=== PATIENT | male | born 1970 | race Caucasian/White ===

== ENCOUNTER 2022-02-17 18:09 | Emergency (ER) | payer OTHER, SELFPAY ==
[2022-02-17 18:24] VITALS: BP 144/103; PULSE 88; RESP 16; TEMP 36.6; O2SAT 98; BMI 26.5
--- NOTE | 2022-02-17 18:47 | CRLHL7_ITS ---
For Patients: As a result of the Cures Act, medical imaging exams and procedure reports are released immediately into your electronic medical record. You may view this report before your referring provider. If you have questions, please contact your health care provider. INDICATION: Left great toe injury. TECHNIQUE: Three views of the left great toe. COMPARISON: None. FINDINGS: Acute nondisplaced transverse fracture through the distal phalanx. Otherwise unremarkable. IMPRESSION: Acute nondisplaced distal phalangeal fracture. Dictated by Kodi Plascencia MD @ 02/17/2022 7:28:55 PM (Electronically Signed)
--- NOTE | 2022-02-17 18:47 | ED.LOWEXIN ---
HPI - Extremity Injury (Lower) General Chief Complaint: Extremity Pain/Injury, Lower Stated Complaint: Smashed L big toe under a loading ramp Time Seen by Provider: 02/17/22 18:18 History of Present Illness HPI Narrative: This 51-year-old male comes in with an injury to his left great toe. He states that it was caught under a loading ramp. This happened about 4 hours prior to arrival. He came inside to take a shower notice that there was significant bruising along with pain. There is no injury to the nail or subungual hematoma. Related Data Home Medications Medication Instructions Recorded Confirmed chlorthalidone 25 mg tablet mg 02/17/22 Allergies Allergy/AdvReac Type Severity Reaction Status Date / Time No Known Drug Allergies Allergy Verified 02/17/22 18:26 Review of Systems Status of ROS: Reports: 10 or more systems reviewed and unremarkable except as noted in History and below Narrative: Constitutional: No fevers, no weight gain or loss. Eyes: No discharge. No vision changes. HENT: No congestion, no sore throat, no ear pain. Cardiovascular: No chest pain, no palpitations. Respiratory: No shortness of breath, no wheezes, no cough. Gastrointestinal: No abdominal pain, no vomiting, no diarrhea. Genitourinary: No dysuria, no hematuria. Musculoskeletal: Left great toe injury. Skin: No rashes, no pruritis. Neurological: No dizziness, weakness, sensory change, speech change. Endo/Heme/Allergies: No bruising or bleeding. No polydipsia. Pysch: no suicidality, no anxiety, no insomnia. All other systems reviewed and are negative. Exam Narrative: Exam Narrative: Constitutional: Well-developed, well-nourished, no acute distress. HEENT: Normocephalic, atraumatic. Neck: Normal range of motion. Nontender. Supple. Heart: Intact distal pulses. Lungs: No chest discomfort. No wheezes, rhonchi, or rales. Abdomen: Nontender. Back: Normal range of motion. Extremities: Left great toe has bruising across the proximal portion on the dorsal aspect. There is no subungual hematoma or nail disruption. There is no laceration of the skin in this area. Skin: Intact. No rash. Warm. No erythema or pallor. Neurologic: No altered sensation. No weakness. Alert and oriented. Psychiatric: No suicidality. No anxiety or depression. No insomnia. Nursing notes and vitals signs are reviewed. Const: Vital Signs, click to edit/add: Vital Signs - 24 hr 02/17/22 18:24 Temperature 97.8 F Pulse Rate [Pulse Oximeter] 88 Respiratory Rate 16 Blood Pressure [Ri ght Upper Arm] 144/103 H Pulse Oximetry 98 Oxygen Delivery Me thod Room Air Course Vital Signs Vital signs: Initial Vital Signs Temperature 97.8 F 02/17/22 18:24 Temperature Source Temporal Artery Scan 02/17/22 18:24 Pulse Rate 88 02/17/22 18:24 Respiratory Rate 16 02/17/22 18:24 Blood Pressure 144/103 H 02/17/22 18:24 Blood Pressure Mean 116 02/17/22 18:24 Blood Pressure Position Supine 02/17/22 18:24 Pulse Oximetry 98 02/17/22 18:24 Oxygen Delivery Method 02/17/22 18:24 Vital Signs Temperature 97.8 F 02/17/22 18:24 Pulse Rate 88 02/17/22 18:24 Respiratory Rate 16 02/17/22 18:24 Blood Pressure 144/103 H 02/17/22 18:24 Pulse Oximetry 98 02/17/22 18:24 Oxygen Delivery Method 02/17/22 18:24 Temperature 97.8 F 02/17/22 18:24 Pulse Rate 88 02/17/22 18:24 Respiratory Rate 16 02/17/22 18:24 Blood Pressure 144/103 H 02/17/22 18:24 Pulse Oximetry 98 02/17/22 18:24 Oxygen Delivery Method 02/17/22 18:24 MDM - Extremity Injury (Lower) MDM Narrative Medical decision making narrative: This patient has a fracture of the distal portion of his left great toe. The alignment is quite good and no intervention is needed. He does have a walking shoe or boot that he can use. He did receive a prescription for Toradol also. Imaging Data XR L Great Toe: My impression: Tuft fracture of the distal portion of the left great toe with minimal displacement. Discharge Plan Discharge Clinical Impression: Fracture of toe Patient Disposition: Home, Self-Care Condition: Stable Additional Instructions: Take medication as needed and indicated. Follow up with MD or return if worsening. Prescriptions: No Action chlorthalidone 25 mg tablet Label Comments: TAKE 1 TABLET BY MOUTH EVERY DAY Follow Up/Referrals: Beto Worthington DO [Primary Care Provider] - Stand Alone Forms: MyHealth Info Instructions
--- OUTSIDE RECORDS SUMMARY | 2022-02-17 19:24 | XMS_ITS | Encounter Summary ---
:1970 Author Organization [facility] Address [address] [place] [address]. [place] [address] Care Team Providers Name Role Phone No Ref-Primary, Physician Primary Care Provider [phone] Reason for Referral Consultation (Routine: Next available opening) - Pending Review Specialty Diagnoses / Procedures Referred By Contact Refer red To Contact Diagnoses Chest pain, unspecified type Palpitations Premature beats Errol Musa MD [facility] [address] [place], [place] [address] Referral ID Status Reason Start Date Expiration Date Visits V isits Requested Authorized [id number] Pending 05/13/2021 05/13/2022 1 1 Review ALT PAVING MACHINE OPERATOR Reason for Visit Reason Comments Palpitations Encounter Details Date Type Department Care Team Description 05/13/2021 Emergency [facility] Sony Musa MD Chest pain, unspecified type; [facility] Emergency Dep t [facility] Palpitations; [address] [place] Premature beats [place], [place] [address] [phone] [address] [place] [address] (Wo rk) Social History Tobacco Use Types Packs/Day Years Used Date Smoking Tobacco: Never Assessed Sex Assigned at Date Recorded Not on file COVID-19 Exposure Response Date Recorded In the last month, have you been in contact with No / Unsure 05/13/2021 12:59 PM ASPHALT PAVING MACHINE OPERATOR someone who was confirmed or suspected to have Coronavirus / COVID-19? documented as of this encounter Last Filed Vital Signs Vital Sign Reading Time Taken Comments Blood Pressure 135/97 05/13/2021 6:45 PM ASPHALT PAVING MACHINE OPERATOR Pulse 73 05/13/2021 6:45 PM ASPHALT PAVING MACHINE OPERATOR Temperature 36.6 ??C (97.9 ??F) 05/13/2021 1:15 PM ASPHALT PAVING MACHINE OPERATOR Respiratory Rate 11 05/13/2021 6:45 PM ASPHALT PAVING MACHINE OPERATOR Oxygen Saturation 98% 05/13/2021 6:45 PM ASPHALT PAVING MACHINE OPERATOR Inhaled Oxygen Concentration - - Weight 86.2 kg (190 lb) 05/13/2021 1:15 PM ASPHALT PAVING MACHINE OPERATOR Height 180.3 cm (5' 11) 05/13/2021 1:15 PM ASPHALT PAVING MACHINE OPERATOR Body Mass Index 26.5 05/13/2021 1:15 PM ASPHALT PAVING MACHINE OPERATOR documented in this encounter Discharge Instructions Discharge InstructionsErrol Musa MD - 05/13/2021 6:38 PM CST Discharge Instructions Palpitations Palpitations are an unusual awareness of your heartbeat. People often describe this as the heart skipping, fluttering, racing, irregular, or pounding. At this time, your provider has found no signs that your palpitations are due to a serious or life-threatening condition. However, sometimes there is aserious problem that does not show up right away. Palpitations can be caused by caffeine, cigarettes, diet pills, energy drinks or supplements, other stimulants, and medications and street drugs. They can also be caused by anxiety, hormone conditions such as high thyroid, and other medical conditions. Sometimes they are a sign of abnormal rhythm in the heart. At this time, your provider did not find any dangerous cause of your symptoms. Generally, every Emergency Department visit should have a follow-up clinic visit with either a primary or a specialty clinic/provider. Please follow-up as instructed by your emergency provider today. Return to the Emergency Department if: You get chest pain or tightness. You are short of breath. You get very weak or tired. You pass out or faint. Your heart rate is over 120 beats per minute for more than 10 minutes while you are resting. You have anything else that worries you. What can I do to help myself? Fill any prescriptions the provider gave you and take them right away. Follow your provider???s instructions about the prescription medicines you are on. Sometimes the provider may tell you to stop taking a medicine or change the dose. If you smoke, this may be a good time to quit! The less you can smoke, the better. Do not use energy drinks, diet pills, or stimulants. Limit your use of caffeine. If you were given a prescription for medicine here today, be sure to read all of the information (including the package insert) that comes with your prescription. This will include important information about the medicine, its side effects, and any warnings that you need to know about. The pharmacist who fills the prescription can provide more information and answer questions you may have about the medicine. If you have questions or concerns that the pharmacist cannot address, please call or return to the Emergency Department. Remember that you can always come back to the Emergency Department if you are not able to see your regular provider in the amount of time listed above, if you get any new symptoms, or if there is anything that worries you. Discharge Instructions Chest Pain You have been seen today for chest pain or discomfort. At this time, your provider has found no signs that your chest pain is due to a serious or life- threatening condition, (or you have declined more testing and/or admission to the hospital). However, sometimes there is a serious problem that does not show up right away. Your evaluation today may not be complete and you may need further testing and evaluation. Generally, every Emergency Department visit should have a follow-up clinic visit with either a primary or a specialty clinic/provider. Please follow-up as instructed by your emergency provider today. Return to the Emergency Department if: Your chest pain changes, gets worse, starts to happen more often, or comes with less activity. You are newly short of breath. You get very weak or tired. You pass out or faint. You have any new symptoms, like fever, cough, numb legs, or you cough up blood. You have anything else that worries you. Until you follow-up with your regular provider, please do the following: If you have questions, contact your regular provider. Follow-up with your regular provider/clinic as directed; this is very important. If you were given a prescription for medicine here today, be sure to read all of the information (including the package insert) that comes with your prescription. This will include important information about the medicine, its side effects, and any warnings that you need to know about. The pharmacist who fills the prescription can provide more information and answer questions you may have about the medicine. If you have questions or concerns that the pharmacist cannot address, please call or return to the Emergency Department. Remember that you can always come back to the Emergency Department if you are not able to see your regular provider in the amount of time listed above, if you get any new symptoms, or if there is anything that worries you. 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 Pt now reports some chest tightness and feels like it is beating harder than it should. Pt states tightness is 2/10. Denies SOB, nausea or vomiting. Pt did feel lightheaded at time of palpitations. ABCs intact. A&OX4. ALT PAVING MACHINE OPERATOR Errol Musa MD - 05/13/2021 12:59 PM CST History Chief Complaint: Palpitations HPI Sohail Levi is a 50 year old male who presents with concern for irregular heartbeat, chest discomfort. Around 1230p, patient was working on his son's vehicle when he started appreciating irregular heartbeats and some mild lightheadedness. He also describes some associated chest tightness. Episode l asted about a minute and a half. Since then he has had intermittent episodes of palpitations. When asked if he has lingering chest pain, he described that he might have some mild sternal discomfort butnothing marked. No associated shortness of breath or cough or fever. No leg swelling. No history of blood clots or cancer or hemoptysis or hormone medications or recent long trips/surgeries. He has notseen a doctor in many years and does not know about other risk factors/comorbidities. Allergies: No Known Allergies Medications: multivitamin w/minerals (MULTI-VITAMIN) tablet None Past Medical History: No past medical history on file. There are no problems to display for this patient. no known Past Surgical History: No past surgical history on file. None reported Family History: family history is not on file. No known Social History: PCP: No primary care provider on file. Lives with Review of Systems A 10 point ROS was obtained and negative except as noted here and in HPI Physical Exam Patient Vitals for the past 24 hrs: BP Temp Temp src Pulse Resp SpO2 Height Weight 05/13/21 1845 (!) 135/97 -- -- 73 11 98 % -- -- 05/13/21 1830 (!) 134/90 -- -- 62 12 98 % -- -- 05/13/21 1815 133/89 -- -- 60 12 98 % -- -- 05/13/21 1800 (!) 139/94 -- -- 68 11 98 % -- -- 05/13/21 1745 (!) 145/102 -- -- 70 9 98 % -- -- 05/13/21 1740 -- -- -- 69 11 99 % -- -- 05/13/21 1735 -- -- -- 66 15 98 % -- -- 05/13/21 1730 (!) 150/103 -- -- 73 -- -- -- -- 05/13/21 1315 (!) 150/101 97.9 ??F (36.6 ??C) Temporal 90 18 99 % 1.803 m (5' 11) 86.2 kg (190 lb) Physical Exam VS: Reviewed per above HENT: normal speech EYES: sclera anicteric CV: Rate as noted, regular rhythm. RESP: Effort normal. Breath sounds are normal bilaterally. NEURO: Alert, moving all extremities MSK: No deformity of the extremities SKIN: Warm and dry Emergency Department Course ECG (13:19:28): Rate 80 bpm. QT/QTc 370/426. P-R-T axes 71, 68, 56. Interpretation: Normal sinus rhythm Agree with computer interpretation. Yes No significant change compared to EKG dated: no old. Interpreted at 1322 by Errol Musa MD. Laboratory: Labs Ordered and Resulted from Time of ED Arrival to Time of ED Departure BASIC METABOLIC PANEL - Abnormal Result Value Sodium 139 Potassium 3.9 Chloride 106 Carbon Dioxide (CO2) 28 Anion Gap 5 Urea Nitrogen 14 Creatinine 0.88 Calcium 9.3 Glucose 128 (*) GFR Estimate >90 TROPONIN I - Normal Troponin I High Sensitivity 6 TROPONIN I - Normal Troponin I High Sensitivity 5 CBC WITH PLATELETS AND DIFFERENTIAL WBC Count 9.6 RBC Count 5.04 Hemoglobin 14.7 Hematocrit 46.7 MCV 93 MCH 29.2 MCHC 31.5 RDW 13.1 Platelet Count 284 % Neutrophils 65 % Lymphocytes 26 % Monocytes 7 % Eosinophils 1 % Basophils 1 % Immature Granulocytes 0 NRBCs per 100 WBC 0 Absolute Neutrophils 6.1 Absolute Lymphocytes 2.5 Absolute Monocytes 0.7 Absolute Eosinophils 0.1 Absolute Basophils 0.1 Absolute Immature Granulocytes 0.0 Absolute NRBCs 0.0 Emergency Department Course: Past medical records, nursing notes, and vitals reviewed. I performed an exam of the patient and obtained history, as documented above. I rechecked the patient. Findings and plan explained to the Patient . Patient was discharged. Impression & Plan Medical Decision Making: Patient presents to the ER for evaluation of episode of palpitations, chest discomfort. On arrival vital signs are reassuring. Here in the ER he does not have significant ongoing palpitations or chest discomfort. EKG is sinus rhythm without ischemic change and serial troponin testing is negative. I have low suspicion for occult ACS. Patient does not have respiratory symptoms or hypoxemia or tachycardia to suggest occult PE. He also does not have other significant PE risk factors. Lungs are clear to auscultation without signs of pneumonia or pneumothorax or pulmonary edema. While at bedside, patientinformed me that he was having another palpitation, similar to what he was experiencing earlier thisafternoon. On the dump grounds checker, I did see a premature beat. It appeared to be a premature atrial contraction although PVC is also in the differential. We discussed that if his symptoms are gettingworse or not better, next step might be Holter monitor or Zio patch. Other basic labs are reassuring without concerning electrolyte derangement or acute kidney injury. Encouraged establishing primary care. Return precautions discussed prior to discharge. Diagnosis: ICD-10-CM 1. Chest pain, unspecified type R07.9 Primary Care Referral 2. Palpitations R00.2 Primary Care Referral 3. Premature beats I49.49 Primary Care Referral Discharge Medications: Discharge Medication List as of 05/13/2021 6:49 PM 05/13/2021 Errol Musa MD Lindenbaum, Elan, MD 05/13/212022 ALT PAVING MACHINE OPERATOR documented in this encounter Plan of Treatment Scheduled Referrals Name Type Priority Associated Diagnoses Order [facility] Primary Care Referral Routine: Next Chest pain, Expected: Referral available opening unspecified ty pe 05/13/2021 Palpitations (Approximate), Premature beats Expires: 05/13/2022 documented as of this encounter Procedures Procedure Name Priority Date/Time Associated Comments Diagnosis TROPONIN I STAT 05/13/2021 5:17 PM Results f or this ASPHALT PAVING MACHINE OPERATOR procedure are i n the results section. EXTRA TUBE STAT 05/13/2021 1:53 PM Results f or this ASPHALT PAVING MACHINE OPERATOR procedure are i n the results section. EXTRA GREEN TOP STAT 05/13/2021 1:53 PM Result s for this (LITHIUM HEPARIN) ASPHALT PAVING MACHINE OPERATOR procedure are in TUBE the results section. EXTRA RED TOP TUBE STAT 05/13/2021 1:53 PM Res ults for this ASPHALT PAVING MACHINE OPERATOR procedure are i n the results section. EXTRA BLUE TOP TUBE STAT 05/13/2021 1:53 PM Re sults for this ASPHALT PAVING MACHINE OPERATOR procedure are i n the results section. CBC WITH PLATELETS STAT 05/13/2021 1:53 PM Res ults for this AND DIFFERENTIAL ASPHALT PAVING MACHINE OPERATOR procedure a re in the results section. CBC WITH PLATELETS & STAT 05/13/2021 1:53 PM R esults for this DIFFERENTIAL ASPHALT PAVING MACHINE OPERATOR procedure are i n the results section. TROPONIN I STAT 05/13/2021 1:53 PM Results f or this ASPHALT PAVING MACHINE OPERATOR procedure are i n the results section. BASIC METABOLIC PANEL STAT 05/13/2021 1:53 PM Results for this ASPHALT PAVING MACHINE OPERATOR procedure are i n the results section. EKG 12-LEAD, TRACING STAT 05/13/2021 1:19 PM R esults for this ONLY ASPHALT PAVING MACHINE OPERATOR procedure are i n the results section. documented in this encounter Results Troponin I (now) (05/13/2021 5:17 PM ASPHALT PAVING MACHINE OPERATOR) P athologist Signature Troponin I High 5 <79 ng/L 05/13/2021 [facility] Sensitivity 6:35 PM ASPHALT PAVING MACHINE OPERATOR Comment: This Troponin-I result was obta ined using a Siemens Dimension Garnavillo High Sensitivity Troponin-I assay (TNIH). Eff ective 03/20/21, nine labs/sites in the [facility] switched from a Siemens Garnavillo Contemporary Troponin I assay (CTNI) to a Siemens Garnavillo High-Sensitivity Troponi n I assay (TNIH). Specimen Anatomical Collection Method / Collection Time Recei chey Time (Source) Location / Volume Laterality Blood BLOOD SPECIMEN / Venipuncture / 05/13/2021 5:17 2021 5:23 Unknown Unknown PM ASPHALT PAVING MACHINE OPERATOR PM ASPHALT PAVING MACHINE OPERATOR Errol Musa MD LAB - BLOOD ORDERABLES Performing Organization Address City/State/[place] [address] Care [address] Lab (1st floor, no room number) Extra Green Top ([place] Heparin) Tube (05/13/2021 1:53 PM ASPHALT PAVING MACHINE OPERATOR) P athologist Signature Hold Specimen [facility] 05/13/2021 [facility] 3:17 PM ASPHALT PAVING MACHINE OPERATOR Specimen Anatomical Collection Method / Collection Time Recei chey Time (Source) Location / Volume Laterality Blood VENOUS LINE / Venipuncture / 05/13/2021 1:53 2 2:13 Unknown Unknown PM ASPHALT PAVING MACHINE OPERATOR PM ASPHALT PAVING MACHINE OPERATOR Errol Musa MD LAB - BLOOD ORDERABLES Performing Organization Address City/[facility]/[place] [address] Care Lab [address] Lab (1st floor, no room number) Extra Red Top Tube (05/13/2021 1:53 PM ASPHALT PAVING MACHINE OPERATOR) P athologist Signature Hold Specimen [facility] 05/13/2021 [facility] 3:17 PM ASPHALT PAVING MACHINE OPERATOR Specimen Anatomical Collection Method / Collection Time Recei chey Time (Source) Location / Volume Laterality Blood VENOUS LINE / Venipuncture / 05/13/2021 1:53 2 2:13 Unknown Unknown PM ASPHALT PAVING MACHINE OPERATOR PM ASPHALT PAVING MACHINE OPERATOR Errol Musa MD LAB - BLOOD ORDERABLES Performing Organization Address City/[facility]/[place] [address] Care Lab [address] Lab (1st floor, no room number) Extra Blue Top Tube (05/13/2021 1:53 PM ASPHALT PAVING MACHINE OPERATOR) P athologist Signature Hold Specimen [facility] 05/13/2021 [facility] 3:17 PM ASPHALT PAVING MACHINE OPERATOR Specimen Anatomical Collection Method / Collection Time Recei chey Time (Source) Location / Volume Laterality Blood VENOUS LINE / Venipuncture / 05/13/2021 1:53 2:13 Unknown Unknown PM ASPHALT PAVING MACHINE OPERATOR PM ASPHALT PAVING MACHINE OPERATOR Errol Musa MD LAB - BLOOD ORDERABLES Performing Organization Address City/State/ZIP Code Phon [place] [address] Care Lab [address] Lab (1st floor, no room number) CBC with platelets and differential (05/13/2021 1:53 PM ASPHALT PAVING MACHINE OPERATOR) Analysis Performed At Patho logist Time Signature WBC Count 9.6 4.0 - 11.0 05/13/2021 [facility] 10e3/uL 2:18 PM ASPHALT PAVING MACHINE OPERATOR RBC Count 5.04 4.40 - 05/13/2021 [facility] 5.90 2:18 PM ASPHALT PAVING MACHINE OPERATOR 10e6/uL Hemoglobin 14.7 13.3 - 05/13/2021 [facility] 17.7 g/dL 2:18 PM ASPHALT PAVING MACHINE OPERATOR Hematocrit 46.7 40.0 - 05/13/2021 [facility] 53.0 % 2:18 PM ASPHALT PAVING MACHINE OPERATOR MCV 93 78 - 100 05/13/2021 [facility] fL 2:18 PM ASPHALT PAVING MACHINE OPERATOR MCH 29.2 26.5 - 05/13/2021 [facility] 33.0 pg 2:18 PM ASPHALT PAVING MACHINE OPERATOR MCHC 31.5 31.5 - 05/13/2021 [facility] 36.5 g/dL 2:18 PM ASPHALT PAVING MACHINE OPERATOR RDW 13.1 10.0 - 05/13/2021 [facility] 15.0 % 2:18 PM ASPHALT PAVING MACHINE OPERATOR Platelet Count 284 150 - 450 05/13/2021 [facility] 10e3/uL 2:18 PM ASPHALT PAVING MACHINE OPERATOR % Neutrophils 65 % 05/13/2021 [facility] 2:18 PM ASPHALT PAVING MACHINE OPERATOR % Lymphocytes 26 % 05/13/2021 [facility] 2:18 PM ASPHALT PAVING MACHINE OPERATOR % Monocytes 7 % 05/13/2021 [facility] 2:18 PM ASPHALT PAVING MACHINE OPERATOR % Eosinophils 1 % 05/13/2021 [facility] 2:18 PM ASPHALT PAVING MACHINE OPERATOR % Basophils 1 % 05/13/2021 [facility] 2:18 PM ASPHALT PAVING MACHINE OPERATOR % Immature 0 % 05/13/2021 [facility] Granulocytes 2:18 PM ASPHALT PAVING MACHINE OPERATOR NRBCs per 100 WBC 0 <1 /100 05/13/2021 [facility] RY 2:18 PM ASPHALT PAVING MACHINE OPERATOR Absolute 6.1 1.6 - 8.3 05/13/2021 [facility] Neutrophils 10e3/uL 2:18 PM ASPHALT PAVING MACHINE OPERATOR Absolute 2.5 0.8 - 5.3 05/13/2021 [facility] Lymphocytes 10e3/uL 2:18 PM ASPHALT PAVING MACHINE OPERATOR Absolute 0.7 0.0 - 1.3 05/13/2021 [facility] Monocytes 10e3/uL 2:18 PM ASPHALT PAVING MACHINE OPERATOR Absolute 0.1 0.0 - 0.7 05/13/2021 [facility] Eosinophils 10e3/uL 2:18 PM ASPHALT PAVING MACHINE OPERATOR Absolute 0.1 0.0 - 0.2 05/13/2021 [facility] Basophils 10e3/uL 2:18 PM ASPHALT PAVING MACHINE OPERATOR Absolute Immature 0.0 <=0.4 05/13/2021 [facility] RY Granulocytes 10e3/uL 2:18 PM ASPHALT PAVING MACHINE OPERATOR Absolute NRBCs 0.0 10e3/uL 05/13/2021 [facility] 2:18 PM ASPHALT PAVING MACHINE OPERATOR Specimen Anatomical Collection Method / Collection Time Recei chey Time (Source) Location / Volume Laterality Blood VENOUS LINE / Venipuncture / 05/13/2021 1:53 2:13 Unknown Unknown PM ASPHALT PAVING MACHINE OPERATOR PM ASPHALT PAVING MACHINE OPERATOR Errol Musa MD LAB - BLOOD ORDERABLES Performing Organization Address City/State/ZIP Code [place] [phone] Care Lab [address] [facility] Lab (1st floor, no room number) Troponin I (05/13/2021 1:53 PM ASPHALT PAVING MACHINE OPERATOR) P athologist Signature Troponin I High 6 <79 ng/L 05/13/2021 [facility] Sensitivity 2:38 PM ASPHALT PAVING MACHINE OPERATOR Comment: This Troponin-I result was obta ined using a Siemens Dimension Garn[place]illo High Sensitivity Troponin-I assay (TNIH). Eff ective 03/20/21, nine labs/sites in the [facility] switched from a Siemens Garnavillo Contemporary Troponin I assay (CTNI) to a Siemens Garnavillo High-Sensitivity Troponi n I assay (TNIH). Specimen Anatomical Collection Method / Collection Time Recei chey Time (Source) Location / Volume Laterality Blood VENOUS LINE / Venipuncture / 05/13/2021 1:53 2:13 Unknown Unknown PM ASPHALT PAVING MACHINE OPERATOR PM ASPHALT PAVING MACHINE OPERATOR Errol Musa MD LAB - BLOOD ORDERABLES Performing Organization Address City/State/ZIP Code [place] [phone] Care Lab [address] Lab (1st floor, no room number) (ABNORMAL) Basic metabolic panel (05/13/2021 1:53 PM ASPHALT PAVING MACHINE OPERATOR) Analysis Performed At Patho logist Time Signature Sodium 139 133 - 144 05/13/2021 [facility] mmol/L 2:34 PM ASPHALT PAVING MACHINE OPERATOR Potassium 3.9 3.4 - 5.3 05/13/2021 [facility] mmol/L 2:34 PM ASPHALT PAVING MACHINE OPERATOR Chloride 106 94 - 109 05/13/2021 [facility] mmol/L 2:34 PM ASPHALT PAVING MACHINE OPERATOR Carbon Dioxide 28 20 - 32 05/13/2021 [facility] (CO2) mmol/L 2:34 PM ASPHALT PAVING MACHINE OPERATOR Anion Gap 5 3 - 14 05/13/2021 [facility] mmol/L 2:34 PM ASPHALT PAVING MACHINE OPERATOR Urea Nitrogen 14 7 - 30 05/13/2021 [facility] mg/dL 2:34 PM ASPHALT PAVING MACHINE OPERATOR Creatinine 0.88 0.66 - 05/13/2021 [facility] 1.25 mg/dL 2:34 PM ASPHALT PAVING MACHINE OPERATOR Calcium 9.3 8.5 - 10.1 05/13/2021 [facility] mg/dL 2:34 PM ASPHALT PAVING MACHINE OPERATOR Glucose 128 (H) 70 - 99 05/13/2021 [facility] mg/dL 2:34 PM ASPHALT PAVING MACHINE OPERATOR GFR Estimate >90 >60 05/13/2021 [facility] mL/min/1.7 2:34 PM ASPHALT PAVING MACHINE OPERATOR 3m2 Comment: Effective April 17, 2021 eGF Rcr in adults is calculated using the 2020 CKD-EPI creatinine equation which includ es age and gender (Key et al., NEJM, DOI: 10.1056/NWPPff9113699) Specimen Anatomical Collection Method / Collection Time Recei chey Time (Source) Location / Volume Laterality Blood VENOUS LINE / Venipuncture / 05/13/2021 1:53 2 2:13 Unknown Unknown PM ASPHALT PAVING MACHINE OPERATOR PM ASPHALT PAVING MACHINE OPERATOR Errol Musa MD LAB - BLOOD ORDERABLES Performing Organization Address City/State/ZIP Code [place] [address] Care Lab [address] Lab (1st floor, no room number) EKG 12-lead, tracing only (05/13/2021 1:19 PM ASPHALT PAVING MACHINE OPERATOR) [facility] Method Time Signature Systolic Blood mmHg RADIOLOGY Pressure RESULTS Diastolic Blood mmHg RADIOLOGY Pressure RESULTS Ventricular Rate 80 BPM RADIOLOGY RESULTS Atrial Rate 80 BPM RADIOLOGY RESULTS FL Interval 142 ms RADIOLOGY RESULTS QRS Duration 94 ms RADIOLOGY RESULTS QT 370 ms RADIOLOGY RESULTS QTc 426 ms RADIOLOGY RESULTS P [place] 71 degrees RADIOLOGY RESULTS R AXIS 68 degrees RADIOLOGY RESULTS T [place] 56 degrees RADIOLOGY RESULTS Interpretation Sinus rhythm RADIOLOGY ECG Normal ECG RESULTS No previous ECGs available Specimen Anatomical Collection Method Collection Time Receive d Time (Source) Location / / Volume Laterality 05/13/2021 1:19 PM 2 6:41 ASPHALT PAVING MACHINE OPERATOR PM ASPHALT PAVING MACHINE OPERATOR Errol Musa MD ECG ORDERABLES Performing Organization Address City/State/ZIP Code Phon e Number RADIOLOGY RESULTS documented in this encounter Visit Diagnoses Diagnosis Chest pain, unspecified type Palpitations Premature beats Premature beats, unspecified documented in this encounter Care Teams Signal Circuit Designer Relationship Specialty Start Date End Date No Ref-Primary, Physician PCP - General 05/13/21 documented as of this encounter
--- OUTSIDE RECORDS SUMMARY | 2022-02-17 19:24 | XMS_ITS | Encounter Summary ---
:1970 Author Organization [facility] Address [address] [place] [id number] Care Team Providers Name Role Phone No Ref-Primary, Physician Primary Care Provider [phone] Encounter Details Date Type Department Care Team Description 05/14/2021 Documentation Only INTERFACED REPORT Unknown, Provider Social History Tobacco Use Types Packs/Day Years Used Date Smoking Tobacco: Never Assessed Sex Assigned at Date Recorded Not on file COVID-19 Exposure Response Date Recorded In the last month, have you been in contact with No / Unsure 05/13/2021 12:59 PM TELEPHONE [facility] someone who was confirmed or suspected to have Coronavirus / COVID-19? documented as of this encounter Plan of Treatment Not on filedocumented as of this encounter Visit Diagnoses Not on filedocumented in this encounter Care Teams Measurement Department Chief Clerk Relationship Specialty Start Date End Date No Ref-Primary, Physician PCP - General 05/13/21 documented as of this encounter
--- OUTSIDE RECORDS SUMMARY | 2022-02-17 19:24 | XMS_ITS | Clinical Summary ---
:1970 Author Organization [facility] [place] [address] Care Team Providers Name Role Phone [facility] Primary Care Provider Allergies No known active allergies Medications Medication Sig Dispensed Refills Start Date End Date Status multivitamins with Take 1 Tablet by 0 Active minerals tablet mouth once daily. [id number]-Fish Oil Take 1 Capsule 0 06/04/2021 Active 1,000 mg (120 mg-180 mg) (1,000 mg) by cap mouth. chlorthalidone Take 1 Tablet 90 Tablet 3 06/25/2021 Active (HYGROTON) 25 mg (25 mg) by mouth tabletIndications: once daily. Essential hypertension Active Problems Problem Noted Date Family history of prostate cancer 06/05/2021 Family history of colonic polyps 06/05/2021 Essential hypertension Tobacco dependence Immunizations Name Administration Dates Next Due Tdap 06/04/2021 Zoster (Shingrix-RZV, recombinant) 06/04/2021 Family History Medical History Relation Name Comments Cancer-prostate Father Colon polyps Father Benign Atrial fibrillation Mother Hyperlipidemia Mother Hypertension Mother Cancer-prostate Paternal Grandfather Relation Name Status Comments Father Alive Mother Alive Paternal Grandfather Social History Tobacco Use Types Packs/Day Years Used Date Light Tobacco Smoker Cigarettes 0.25 10 Smokeless Tobacco: Never Used Tobacco Cessation: Ready to Quit: Yes; C ounseling Given: Yes Comments: 5-6 cigs per day Alcohol Use Standard Drinks/Week Comments Yes 0 (1 standard drink = 0.6 oz pure alcoho l) occ Alcohol Habits Answer Date Recorded How often do you have a drink containing alcohol? Not asked How many drinks containing alcohol do you have on a typical Not asked day when you are drinking? How often do you have six or more drinks on one occasion? No t asked Comment: occ 06/04/2021 Sex Assigned at Date Recorded Not on file Obstetrics History Last Filed Vital Signs Vital Sign Reading Time Taken Comments Blood Pressure 122/83 06/25/2021 7:03 AM SOLIDS CONTROL TECHNICIAN Pulse 70 06/25/2021 7:03 AM SOLIDS CONTROL TECHNICIAN Temperature 36.7 ??C (98.1 ??F) 06/04/2021 1:24 PM SOLIDS CONTROL TECHNICIAN Respiratory Rate - - Oxygen Saturation 97% 06/25/2021 7:03 AM SOLIDS CONTROL TECHNICIAN Inhaled Oxygen Concentration - - Weight 85.6 kg (188 lb 12.8 oz) 06/25/2021 7:03 AM SOLIDS CONTROL TECHNICIAN Height 177.8 cm (5' 10) 06/25/2021 7:03 AM SOLIDS CONTROL TECHNICIAN Body Mass Index 27.09 06/25/2021 7:03 AM SOLIDS CONTROL TECHNICIAN Plan of Treatment Health Maintenance Due Date Last Done Comments COVID-19 vaccine series (#1) 05/16/1971 Pneumococcal series for age 19-64 ( - 1976 PCV) Hepatitis C screening for age 18-79 1988 Colonoscopy through age 75 11/14/2015 Zoster (shingles) series for age 50+ (2 of 07/30/202106/04 2) Influenza for age 50-64 12/27/2021 Depression screening for age 12+ 06/04/2022 06/04/2021 BMI (ht and wt on same day) for age 18+ 06/25/2022 06/25/19 22, 06/04/2021 Lipids for age 45-75 06/04/2026 06/04/2021 Tetanus booster 06/04/2031 06/04/2021 Tdap Completed 06/04/2021 Results Not on filefrom Last 3 Months Insurance Payer Benefit Plan / Subscriber ID Effective Dates Phone Addre ss Type Group [employer] [id number] 2018-Present [address] [place] [address] Care Teams Manager Supply Chain Relationship Specialty Start Date End Date [facility] PCP - General 11/01/[address] [place] [id number]
--- OUTSIDE RECORDS SUMMARY | 2022-02-17 19:24 | XMS_ITS | Encounter Summary ---
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 documented as of this encounter Plan of Treatment Not on filedocumented as of this encounter Visit Diagnoses Not on filedocumented in this encounter Care Teams Agricultural Research Technician Relationship Specialty Start Date End Date No Ref-Primary, Physician PCP - General 05/13/21 documented as of this encounter
--- OUTSIDE RECORDS SUMMARY | 2022-02-17 19:24 | XMS_ITS | Clinical Summary ---
:1970 Author Organization [facility] Address [address] [place] [id number] Care Team Providers Name Role Phone No Ref-Primary, Physician Primary Care Provider [phone] Allergies No known active allergies Medications Medication Sig Dispensed Refills Start Date End Date Status multivitamin w/minerals Take 1 tablet by 0 Active (MULTI-VITAMIN) tablet mouth daily Social History Tobacco Use Types Packs/Day Years Used Date Smoking Tobacco: Never Assessed Sex Assigned at Date Recorded Not on file Last Filed Vital Signs Vital Sign Reading Time Taken Comments Blood Pressure 135/97 05/13/2021 6:45 PM [employer] Pulse 73 05/13/2021 6:45 PM [employer] Temperature 36.6 ??C (97.9 ??F) 05/13/2021 1:15 PM [employer] Respiratory Rate 11 05/13/2021 6:45 PM [employer] Oxygen Saturation 98% 05/13/2021 6:45 PM [employer] Inhaled Oxygen Concentration - - Weight 86.2 kg (190 lb) 05/13/2021 1:15 PM [employer] Height 180.3 cm (5' 11) 05/13/2021 1:15 PM [employer] Body Mass Index 26.5 05/13/2021 1:15 PM [employer] Plan of Treatment Health Maintenance Due Date Last Done Comments ADVANCE CARE PLANNING 1970 ANNUAL REVIEW OF HM ORDERS 1970 CT COLONOGRAPHY 1970 FIT-DNA (Cologuard) 1970 FIT 1970 FLEX SIG 1970 HEPATITIS B IMMUNIZATION (1 of 3 - 1970 3-dose series) YEARLY PREVENTIVE VISIT 1970 COVID-19 Vaccine (#1) 05/16/1971 Pneumococcal Vaccine: Pediatrics 1976 (0 to 5 Years) and At-Risk Patients (6 to 64 Years) (1 - PCV) COLONOSCOPY 1980 COLORECTAL CANCER SCREENING 1980 HIV SCREENING 1985 HEPATITIS C SCREENING 1988 DTAP/TDAP/TD IMMUNIZATION (1 - 11/14/1995 Tdap) LIPID 2005 ZOSTER IMMUNIZATION (1 of 2) 2020 PHQ-2 (once per calendar year) 2021 INFLUENZA VACCINE (#1) 2021 IPV IMMUNIZATION Aged Out No longer eligi ble based on patient's age to complete this topic MENINGITIS IMMUNIZATION Aged Out No longe r eligible based on patient's age to complete this topic Insurance Payer Benefit Plan / Subscriber ID Effective Phone Address T ype Group Dates [facility] [id number] 2021-Pres [phone] [address] [facility] ent [address] [place] [address] Care Teams Armature Inspector Relationship Specialty Start Date End Date No Ref-Primary, Physician PCP - General 05/13/21
== END 2022-02-17 19:20 | disposition home or self-care (01) ==
PROVIDERS: Emergency Provider Emergency Medicine Emergency Medical Services; PCP Family Medicine
DX: S92.422A Displaced fracture of distal phalanx of left great toe, initial encounter for closed fracture (principal); X58.XXXA Exposure to other specified factors, initial encounter; Y93.9 Activity, unspecified; Y92.9 Unspecified place or not applicable; Y99.9 Unspecified external cause status
CPT/HCPCS: 73660; 99283; 99284

== ENCOUNTER 2023-04-28 19:08 | Emergency (ER) | payer BC, SELFPAY ==
[2023-04-28 19:13] VITALS: BP 141/89; PULSE 90; RESP 16; TEMP 36.3; O2SAT 97
--- NOTE | 2023-04-28 20:10 | PC.NURSE ---
dressing c/d/i at time of DC, DC instructions gone over with patient and patinet has no further questions. DC ambulatory, pain controlled, no bleeding
--- NOTE | 2023-04-28 20:19 | ED.GENADULT ---
HPI - General Adult General Date Seen: 04/28/23 Chief complaint: Laceration/Wound Stated complaint: Lac L pointer finger Time Seen by Provider: 04/28/23 19:46 Source: patient Mode of arrival: ambulatory Limitations: no limitations History of Present Illness HPI narrative: Patient is a 52-year-old male who was cutting up hong and sliced a piece of his left index finger off, through the nail. Initially was bleeding a lot although it is better now. Tetanus is up-to-date, no other complaints. Related Data Home Medications Medication Instructions Recorded Confirmed chlorthalidone 25 mg tablet mg 02/17/22 03/29/22 chlorthalidone 25 mg tablet mg PO DAILY 03/01/22 03/29/22 multivitamin (Multiple Vitamins 1 tab PO QDAY 03/01/22 03/29/22 tablet) omega-3 fatty acids 1,000 mg 1,000 mg PO QDAY 03/01/22 03/29/22 capsule Allergies Allergy/AdvReac Type Severity Reaction Status Date / Time No Known Drug Allergies Allergy Verified 04/02/22 08:56 [facility] Medical History (Updated 04/28/23 @ 19:57 by Jennifer Trinidad MD) Neck pain ?M54.2 - Cervicalgia (ICD-10) Atypical chest pain ?R07.89 - Other chest pain (ICD-10) Social History Smoking Status: Never smoker Do you use any of these nicotine containing products: None Non-prescribed substance use: denies use Exam Narrative: Exam Narrative: Vital signs reviewed In general, alert, well-appearing male. Extremities: Examination of the left index finger shows an avulsion type injury at the tip involving a chunk of the nail. Bleeding is controlled at this time. Distal CMS is normal. 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 Routine wound care, return for signs of infection. Remove dressing in a few days and then cover with ointment and a bandage for the remainder of healing time. Did review with him that there will be a chronic divot in the skin there and that the nail will likely grow back somewhat deformed over that area, as a portion of the nail bed is avulsed. Vital Signs Vital signs: Initial Vital Signs Temperature 97.3 F L 04/28/23 19:13 Temperature Source Temporal Artery Scan 04/28/23 19:13 Pulse Rate 90 04/28/23 19:13 Pulse Rhythm Regular 04/28/23 19:13 Respiratory Rate 16 04/28/23 19:13 Blood Pressure 141/89 H 04/28/23 19:13 Blood Pressure Mean 106 H 04/28/23 19:13 Blood Pressure Position Sitting 04/28/23 19:13 Pulse Oximetry 97 04/28/23 19:13 Oxygen Delivery Method Room Air 04/28/23 19:13 Vital Signs Temperature 97.3 F L 04/28/23 19:13 Pulse Rate 90 04/28/23 19:13 Respiratory Rate 16 04/28/23 19:13 Blood Pressure 141/89 H 04/28/23 19:13 Pulse Oximetry 97 04/28/23 19:13 Oxygen Delivery Method Room Air 04/28/23 19:13 Temperature 97.3 F L 04/28/23 19:13 Pulse Rate 90 04/28/23 19:13 Respiratory Rate 16 04/28/23 19:13 Blood Pressure 141/89 H 04/28/23 19:13 Pulse Oximetry 97 04/28/23 19:13 Oxygen Delivery Method Room Air 04/28/23 19:13 Discharge Plan Discharge Clinical Impression: Avulsion of finger tip Patient Disposition: Home, Self-Care Condition: Stable Instructions: Skin Avulsion (ED) Additional Instructions: I would recommend leaving the dressing that we put on here in place for the next 2-3 days, unless you are noticing significant increasing pain. If so you should take the dressing off and check for infection. Otherwise, gently remove the dressing in a few days, at which time it should be stabilized enough that you can use antibiotic ointment and a Band-Aid for the remainder of healing time. Be aware that there will be a divot in that area and that the nail will likely grow differently over that area. Prescriptions: No Action chlorthalidone 25 mg tablet PO DAILY omega-3 fatty acids 1,000 mg capsule 1,000 mg PO QDAY multivitamin [Multiple Vitamins] Tablet 1 tab PO QDAY chlorthalidone 25 mg tablet Patient Comments: TAKE 1 TABLET BY MOUTH EVERY DAY Follow Up/Referrals: Beto Worthington DO [Primary Care Provider] - Stand Alone Forms: [facility] Info Instructions
== END 2023-04-28 20:10 | disposition home or self-care (01) ==
LOC: ED 20:08
PROVIDERS: Emergency Provider Emergency Medicine; PCP Family Medicine
DX: S61.311A Laceration without foreign body of left index finger with damage to nail, initial encounter (principal); W26.0XXA Contact with knife, initial encounter
CPT/HCPCS: 29130; 99283

== ENCOUNTER 2024-12-14 14:08 | Outpatient (CLI) | payer BC, SELFPAY ==
--- NOTE | 2024-12-21 11:58 | W.PM.SLEEP ---
Sleep Study Details Details Interpreting Provider: Phoebe Date of Sleep Study: 12/14/24 Sleep Study Details: STUDY TYPE:? Home unattended ? BMI:? 26.92 ORDERING PROVIDER:? Phoebe INDICATION:? Concerned about sleep apnea ? SLEEP SUMMARY:? 396 minutes monitor RESPIRATORY SUMMARY:? AHI 8.0 per rule 1A, 3.8 per CMS guideline Low oxygen 84 2.8% of study oxygen less than 90% Snoring 96.3% PERIODIC LIMB MOVEMENTS OF SLEEP:? Not recorded CARDIAC:? Range 46-95, mean 59.7 beats per minute IMPRESSION:? Mild obstructive sleep apnea with significant hypo oxygenation RECOMMENDATION: Treatment options include CPAP, dental appliance and/or airway expansion surgery.
== END 2024-12-14 14:09 | disposition home or self-care (01) ==
PROVIDERS: PCP Family Medicine; Visit Provider Otolaryngology
DX: G47.33 Obstructive sleep apnea (adult) (pediatric) (principal)
CPT/HCPCS: 95806